=== PATIENT | male | born 1990 | race Two or more races ===

== ENCOUNTER 2019-08-02 02:47 | Emergency (ER) | payer MEDICAID ==
[~2019-08-02] VITALS: Ht 180.3 cm; Wt 99.8 kg
[2019-08-02] MEDS ORDERED: CLINDAMYCIN HCL 150 MG CAP PO ONE (03:15)
[2019-08-02] MEDS ORDERED: cefTRIAXone SOD 1,000 MG VL IM ONE (03:15)
[2019-08-02 03:23] VITALS: BP 147/86
[2019-08-02] MEDS ORDERED: LIDOCAINE 1% HCL (LOCAL ANESTH.) INJ 20ML MDV IJ ONE (03:30)
== END 2019-08-02 03:50 | disposition home or self-care (01) ==
LOC: ER 02:52
DX: K04.7 Periapical abscess without sinus (principal); F17.210 Nicotine dependence, cigarettes, uncomplicated
CPT/HCPCS: 36415; 85025; 96372; 99283; J0696; J2001

== ENCOUNTER 2019-09-14 15:18 | Emergency (ER) | payer MEDICAID ==
[~2019-09-14] VITALS: Ht 180.3 cm; Wt 104.3 kg
[2019-09-14 15:39] VITALS: BP 140/80
== END 2019-09-14 16:46 | disposition home or self-care (01) ==
LOC: ER 15:31
DX: S20.212A Contusion of left front wall of thorax, initial encounter (principal); S80.02XA Contusion of left knee, initial encounter; F17.210 Nicotine dependence, cigarettes, uncomplicated; R51 Headache; V49.9XXA Car occupant (driver) (passenger) injured in unspecified traffic accident, initial encounter; Y93.89 Activity, other specified; Y92.89 Other specified places as the place of occurrence of the external cause; Y99.8 Other external cause status
CPT/HCPCS: 71101; 73560

== ENCOUNTER 2020-04-10 14:17 | Emergency (ER) | payer SELFPAY | END 2020-04-10 15:18 | disposition left against medical advice (07) | LOC: ER 14:17 | DX: J18.9 Pneumonia, unspecified organism (principal); Z53.21 Procedure and treatment not carried out due to patient leaving prior to being seen by health care provider ==

== ENCOUNTER 2020-04-11 12:40 | Inpatient (IN) | payer MEDICAID ==
[~2020-04-11] VITALS: Ht 180.3 cm; Wt 97.4 kg
[2020-04-11] MEDS ORDERED: SODIUM CHLORIDE 0.9% 1,000 ML IV ONE (13:02)
[2020-04-11] MEDS ORDERED: ONDANSETRON HCL 4 MG/2 ML VIAL IV ONE (13:15)
[2020-04-11 14:04] LABS: Basophils # (auto) 0.1 10 ^3/uL (0-0.2); Basophils % (auto) 1.4 % (0.0-2.0); Eosinophils # (auto) 0 10 ^3/uL (0-0.8); Eosinophils % (auto) 0.2 % (0.0-7.0); Hematocrit 39.6 % (41.0-53.0); Hemoglobin 13.1 g/dL (13.5-17.5); Lymphocytes # (auto) 0.5 10 ^3/uL (0.4-5.4); Lymphocytes % (auto) 4.7 % (10.0-50.0); Mean Corpuscular Hgb Conc. 33.1 g/dL (32.0-36.0); Mean Corpuscular Volume 87.5 fL (80.0-100.0); Monocytes # (auto) 1.1 10 ^3/uL (0-1.3); Monocytes % (auto) 10.9 % (0.0-12.0); Neutrophils # (auto) 8.4 10 ^3/uL (1.6-8.6); Neutrophils % (auto) 82.8 % (37.0-80.0); Platelet Count (auto) 317 10^3/uL (140-450); Red Blood Cells 4.53 10^6/uL (4.5-5.90); Red Cell Distribution Width 15.6 % (11.8-14.3); White Blood Cell 10.1 10^3/uL (4.4-10.8)
[2020-04-11 14:26] LABS: Albumin 3.3 g/dL (3.4-5.0); BUN/Creatinine Ratio 21.6; Magnesium 1.5 mg/dL (1.6-2.6)
[2020-04-11 14:28] LABS: Bilirubin, Total 0.9 mg/dL (0.2-1.0); Total Protein 7.9 g/dL (6.4-8.2)
[2020-04-11 14:32] LABS: Potassium 2.8 mmol/L (3.5-5.1)
[2020-04-11] MEDS ORDERED: POTASSIUM CHL 20MEQ/100ML 100 ML IV ONE (15:30)
[2020-04-11] MEDS: PANTOPRAZOLE 40 MG/10 ML VIAL INJ IV SCH (21:51)
[2020-04-11] MEDS: cefTRIAXone 1GM/50ML D5W 50 ML IV SCH (21:52)
[2020-04-11 22:30] VITALS: BP 100/52
--- NOTE | 2020-04-11 22:30 | NUR ---
Admitted this 29 year old male client with the chief complaint of abdominal pain for 2 days and nausea and vomiting for 2 weeks now. Pt. arrived from ER. to [place] Floor by laure @ 2230 Pm. Pt. alert, awake, oriented 4, of culture speaks Ukrainian well. Pt. in Room Air with 02 sat. of 99 %. Breathing regular, even and symmetrical. Pt. denies chest pain. Pt. verbalizing that he has abdominal pain hurting and throbbing as described by the pt. Pt. placed to the bed comfortably in Room 271 A. Pt. is Med.-Surgical, none monitored. Pt. ER. gown changed to floor gown. Pt. physical assessment started from head to toe. Pt. provided room and floor/unit orientation about hospital routines and hospital procedure. Pt. given health teachings about the use of call-light, the use of bed control to modify the head of bed up, use of TV and telephone @ the bedside. Pt. pain is @ the abdomen about 2/10 scale @ this time. IVF access @ the LFA G # 22 is patent and intact. Provided pt. a safe and quiet environment.
--- NOTE | 2020-04-11 23:30 | NUR ---
Continue to gather data by interviewing pt. present and past medical history. Pt. verbalized that his past hospitalization was due to PNA and he is a former smoker and that he stopped smoking 4-5 months ago.
--- NOTE | 2020-04-12 | NUR ---
Pt. resting and sleeping. Pt. provided a safe and quiet environment. Keep pt. warm and comfortable in bed.
[2020-04-12] MEDS: ONDANSETRON HCL 4 MG/2 ML VIAL IV PRN (03:02)
[2020-04-12] MEDS: MORPHINE SULF INJ 2 MG/ML SYRINGE 1ML IV PRN ×2 (03:02→10:06)
[2020-04-12] MEDS: SODIUM CHLORIDE 0.9% 1,000 ML IV SCH ×2 (03:04→09:01)
--- NOTE | 2020-04-12 03:04 | NUR ---
IVF of NS replaced and followed up a new bag @ 85 ml./hr. continuous to hydrate the pt. Pt. kept on NPO as per Doctors order due to presence of abdominal pain. Pt. made aware of present care.
[2020-04-12] MEDS ORDERED: MAGNESIUM SULFATE 1GM/100ML 100 ML IV ONE ×2 (03:24→03:49)
[2020-04-12] MEDS: MAGNESIUM SULFATE 1GM/100ML 100 ML IV SCH ×2 (03:49→05:06)
--- NOTE | 2020-04-12 03:49 | NUR ---
Magnesium Sulfate 1 GM given IVPB @ this time after the ER. RN sent the IV med. to the Floor.
[2020-04-12 05:00] VITALS: BP 101/49
--- NOTE | 2020-04-12 05:06 | NUR ---
Second bag of Magnesium Sulfate 1 GM given IVPB @ 0506 Am. The 2 bags of Magnesium Sulfate IV completed.
[2020-04-12 05:48] LABS: Basophils # (auto) 0 10 ^3/uL (0-0.2); Basophils % (auto) 0.2 % (0.0-2.0); Eosinophils # (auto) 0 10 ^3/uL (0-0.8); Eosinophils % (auto) 0.2 % (0.0-7.0); Hematocrit 34.9 % (41.0-53.0); Hemoglobin 11.7 g/dL (13.5-17.5); Lymphocytes # (auto) 0.1 10 ^3/uL (0.4-5.4); Lymphocytes % (auto) 0.7 % (10.0-50.0); Mean Corpuscular Hemoglobin 29.5 pg (28.0-32.0); Mean Corpuscular Hgb Conc. 33.6 g/dL (32.0-36.0); Mean Corpuscular Volume 87.7 fL (80.0-100.0); Monocytes # (auto) 0.3 10 ^3/uL (0-1.3); Monocytes % (auto) 2.7 % (0.0-12.0); Neutrophils # (auto) 10.4 10 ^3/uL (1.6-8.6); Neutrophils % (auto) 96.2 % (37.0-80.0); Nucleated Red Blood Cells % 0.1 %; Platelet Count (auto) 225 10^3/uL (140-450); Red Blood Cells 3.98 10^6/uL (4.5-5.90); Red Cell Distribution Width 15.8 % (11.8-14.3); White Blood Cell 10.8 10^3/uL (4.4-10.8)
[2020-04-12 06:20] LABS: Albumin 2.8 g/dL (3.4-5.0); BUN/Creatinine Ratio 18.9; Bilirubin, Total 0.7 mg/dL (0.2-1.0); Calcium 7.7 mg/dL (8.5-10.1); Total Protein 6.8 g/dL (6.4-8.2)
[2020-04-12 06:29] LABS: Potassium 2.7 mmol/L (3.5-5.1)
--- NOTE | 2020-04-12 07:05 | NUR ---
HOSPITAL LIST PAGED FOR CRITICAL VALUE OF POTASSIUM 2.7. AWAITING RETURN CALL FOR ORDERS
[2020-04-12 08:00] VITALS: BP 95/56
[2020-04-12] MEDS: cefTRIAXone 1GM/50ML D5W 50 ML IV SCH (09:00)
[2020-04-12] MEDS: POTASSIUM CHL 20MEQ/100ML 100 ML IV SCH ×2 (09:01→13:04)
[2020-04-12] MEDS ORDERED: D5W/SOD CHL 0.45%/KCL 40MEQ 1,000 ML IV ONE (09:15)
[2020-04-12] MEDS: PANTOPRAZOLE 40 MG/10 ML VIAL INJ IV SCH (10:05)
[2020-04-12 10:14] LABS: Amylase 56 U/L (25-115); INR 1.17 (0.9-1.15); Lipase 114 U/L (73-393); Partial Thromboplastin Time 31.1 sec (23.64-32.05)
[2020-04-12 12:00] VITALS: BP 101/54
[2020-04-12] MEDS: SOD CHL 0.45% 1,000 ML IV SCH ×2 (12:39→17:26)
--- NOTE | 2020-04-12 16:02 | NUR ---
RECEIVED A PHONE CALL FROM THE PATIENT'S SISTER. SHE CLAIMED THAT HE IS HIV POSITIVE AND WAS SUPPOSED TO INFORM THE STAFF ON ADMISSION. PATIENT CONFIRMED THAT HE IS HIV POSITIVE.
[2020-04-12] MEDS ORDERED: POTASSIUM CHLORIDE 40 MEQ, LIDOCAINE 1% (LOCAL ANESTH.) 4 ML in SODIUM CHL 0.9% 100 ML IV ONE (16:45)
[2020-04-12 16:56] VITALS: BP 107/63
--- NOTE | 2020-04-12 19:45 | NUR ---
Opening Shift Note Assumed care of patient, sleeping. Awoke pt for shift change assessment and introduction. Pt oriented and alert. No S/S of distress/SOB or pain. Instructed on POC, NPO status and to call for assist PRN, will continue to monitor for changes Q1hr and PRN.
[2020-04-12 22:00] VITALS: BP 139/76
[2020-04-13] MEDS: SOD CHL 0.45% 1,000 ML IV SCH ×2 (04:50→12:45)
[2020-04-13 05:00] VITALS: BP 107/65
--- NOTE | 2020-04-13 06:38 | NUR ---
Pt off unit, taken to pre op.
[2020-04-13] MEDS ORDERED: ceFAZolin 1GM/50ML 50 ML IV ONE (07:01)
[2020-04-13] MEDS ORDERED: POTASSIUM CHL 20MEQ/100ML 100 ML IV ONE ×2 (08:46→09:00)
[2020-04-13] MEDS: cefTRIAXone 1GM/50ML D5W 50 ML IV SCH (09:00)
[2020-04-13] MEDS: PANTOPRAZOLE 40 MG/10 ML VIAL INJ IV SCH (10:00)
[2020-04-13 10:07] LABS: Basophils # (auto) 0 10 ^3/uL (0-0.2); Basophils % (auto) 0.3 % (0.0-2.0); Eosinophils # (auto) 0.2 10 ^3/uL (0-0.8); Eosinophils % (auto) 3.2 % (0.0-7.0); Hematocrit 27.7 % (41.0-53.0); Hemoglobin 9.2 g/dL (13.5-17.5); Lymphocytes # (auto) 0 10 ^3/uL (0.4-5.4); Lymphocytes % (auto) 0.9 % (10.0-50.0); Mean Corpuscular Hemoglobin 29.4 pg (28.0-32.0); Mean Corpuscular Hgb Conc. 33.2 g/dL (32.0-36.0); Mean Corpuscular Volume 88.6 fL (80.0-100.0); Monocytes # (auto) 0.3 10 ^3/uL (0-1.3); Neutrophils # (auto) 4.2 10 ^3/uL (1.6-8.6); Neutrophils % (auto) 88.6 % (37.0-80.0); Platelet Count (auto) 157 10^3/uL (140-450); Red Blood Cells 3.13 10^6/uL (4.5-5.90); Red Cell Distribution Width 15.6 % (11.8-14.3); White Blood Cell 4.7 10^3/uL (4.4-10.8)
[2020-04-13 10:19] LABS: Albumin 2.1 g/dL (3.4-5.0); Calcium 7.4 mg/dL (8.5-10.1); Potassium 3.1 mmol/L (3.5-5.1)
[2020-04-13 10:22] LABS: BUN/Creatinine Ratio 23.4; Bilirubin, Total 0.4 mg/dL (0.2-1.0); Total Protein 5.5 g/dL (6.4-8.2)
[2020-04-13] MEDS ORDERED: SUCCINYLCHOLINE CHLORIDE 20 MG/ML 10ML VIAL IV ONE (10:43)
[2020-04-13] MEDS ORDERED: ROCURONIUM 10MG/ML 10ML VIAL IV ONE (10:46)
[2020-04-13] MEDS ORDERED: fentaNYL CITRATE 100 MCG/2 ML VL ONE (10:46)
[2020-04-13] MEDS ORDERED: GLYCOPYRROLATE 0.2 MG/ML 1ML VIAL IV ONE (10:46)
[2020-04-13] MEDS ORDERED: MIDAZOLAM HCL 1MG/1ML-2 ML VIAL ONE (10:46)
[2020-04-13] MEDS ORDERED: NEOSTIGMINE 1 MG/ML INJ (10mg/10ML VIAL) IV ONE (10:46)
[2020-04-13] MEDS ORDERED: PROPOFOL 10 MG/ML 20 ML IV ONE (10:57)
[2020-04-13] MEDS ORDERED: ONDANSETRON HCL 4 MG/2 ML VIAL IV PRN (12:00)
[2020-04-13] MEDS ORDERED: MORPHINE SULF INJ 2 MG/ML SYRINGE 1ML IV PRN (12:00)
[2020-04-13] MEDS ORDERED: hydrALAZINE HCL 20 MG/ML VL IV PRN (12:00)
[2020-04-13] MEDS ORDERED: ePHEDrine SULFATE 50 MG/ML AMP IV PRN (12:00)
--- NOTE | 2020-04-13 12:41 | NUR ---
PATIENT RETURNED TO UNIT BY MADYSON ZAYAS FROM RECOVERY. PATIENT IS AWAKE AND ALERT. VS - 98.4, 136/99, 86HR, 18RR, 99% ON RA. PATIENT IS COMPLAINING OF 9/10 PAIN IN THE ABDOMEN. INFORMED PATIENT THAT HE RECEIVED MORPHINE 2 MG PRIOR TO BEING BROUGHT BACK UP TO THE FLOOR- PATIENT VERBALIZED UNDERSTANDING I AM UNABLE TO MEDICATE HIM AT THIS TIME. BROUGHT PATIENT ICE CHIPS AND ENCOURAGE DISTRACTION AND REST FOR ALTERNATE PAIN MANAGEMENT. BED LOW. LIGHT IN REACH.
[2020-04-13 12:45] VITALS: BP 136/99
[2020-04-13 13:00] VITALS: BP_SYST 114; BP_SYST 119; BP_DIAS 69; BP_DIAS 71
[2020-04-13] MEDS: MORPHINE SULF INJ 2 MG/ML SYRINGE 1ML IV PRN ×2 (13:17→20:37)
[2020-04-13] MEDS: ONDANSETRON HCL 4 MG/2 ML VIAL IV PRN (13:18)
[2020-04-13 13:30] VITALS: BP 117/76
[2020-04-13] MEDS: SOD CHL 0.45% WITH 20MEQ KCL 1,000 ML IV SCH (16:20)
[2020-04-13 17:00] VITALS: BP 108/62
--- NOTE | 2020-04-13 19:45 | NUR ---
Opening Shift Note Assumed care of patient, awake and alert. No S/S of distress/SOB or pain. Pt given IS and educated on use, pt verbalized understanding, measuring at 500 at this time. Safety measures in place, bed in lowest position, bed rails raised x2, call light within reach. Pt asked if he was allowed to get up and walk later. Pt encouraged to ambulate as tolerated. Pt instructed to call nurse before ambulating for the first time to ensure safety. Pt verbalized understanding. Instructed on POC and to call for assist PRN, will continue to monitor for changes Q1hr and PRN.
[2020-04-13 21:52] VITALS: BP 111/65
--- NOTE | 2020-04-14 | NUR ---
Pt SP amelia cholmarimar, states that he was able to have a bowel movement tonight.
--- NOTE | 2020-04-14 04:16 | NUR ---
Patient is S/P laparoscopic cholecystectomy on 04/13/20. Patient awoke with a temperature of 102.1; cooling measures have been initiated. Patient does not have acetaminophen ordered, paging hospitalist. Will continue to monitor.
[2020-04-14] MEDS ORDERED: ACETAMINOPHEN 325 MG TAB PO PRN (04:45)
[2020-04-14] MEDS: MORPHINE SULF INJ 2 MG/ML SYRINGE 1ML IV PRN ×3 (04:55→20:13)
[2020-04-14 05:00] VITALS: BP 114/60
[2020-04-14 05:52] LABS: Basophils # (auto) 0 10 ^3/uL (0-0.2); Basophils % (auto) 0.1 % (0.0-2.0); Eosinophils # (auto) 0.1 10 ^3/uL (0-0.8); Eosinophils % (auto) 2.8 % (0.0-7.0); Hematocrit 28.2 % (41.0-53.0); Hemoglobin 9.4 g/dL (13.5-17.5); Lymphocytes # (auto) 0.1 10 ^3/uL (0.4-5.4); Lymphocytes % (auto) 4.2 % (10.0-50.0); Mean Corpuscular Hemoglobin 29.8 pg (28.0-32.0); Mean Corpuscular Hgb Conc. 33.5 g/dL (32.0-36.0); Mean Corpuscular Volume 88.7 fL (80.0-100.0); Monocytes # (auto) 0.2 10 ^3/uL (0-1.3); Monocytes % (auto) 7.5 % (0.0-12.0); Neutrophils # (auto) 2.6 10 ^3/uL (1.6-8.6); Neutrophils % (auto) 85.4 % (37.0-80.0); Nucleated Red Blood Cells % 0.2 %; Platelet Count (auto) 153 10^3/uL (140-450); Red Blood Cells 3.17 10^6/uL (4.5-5.90); Red Cell Distribution Width 15.9 % (11.8-14.3)
[2020-04-14 06:11] LABS: Calcium 7.2 mg/dL (8.5-10.1); Potassium 3.2 mmol/L (3.5-5.1)
[2020-04-14 06:14] LABS: BUN/Creatinine Ratio 22.5; Bilirubin, Total 0.4 mg/dL (0.2-1.0)
[2020-04-14] MEDS: SOD CHL 0.45% WITH 20MEQ KCL 1,000 ML IV SCH ×2 (06:30→16:25)
[2020-04-14 08:00] VITALS: BP 106/67
[2020-04-14] MEDS ORDERED: POTASSIUM CHL 20 Meq TABLET PO ONE (08:15)
[2020-04-14] MEDS: cefTRIAXone 1GM/50ML D5W 50 ML IV SCH (08:56)
[2020-04-14 09:16] VITALS: BP 106/67
--- NOTE | 2020-04-14 12:07 | NUR ---
Nutrition Assessment Notes please see attached link for complete assessment Est Energy needs ABW 88 [id number] kcals (23-25 kcal/kgABW),Est Protein needs: 88-105 gms/day (1.0-1.2 gm/kgABW r/t severe hypoalb). Will continue to monitor and reassess prn. Addendum: 04/14/20 at [address] Amended: Links added.
--- NOTE | 2020-04-14 13:00 | NUR ---
PATIENT CLEARED FOR DISCHARGE BY DR RILEY IF AFEBRILE OVER NIGHT
[2020-04-14] MEDS ORDERED: TRAM50TA2 PO (14:16)
[2020-04-14] MEDS ORDERED: METR500T PO (14:16)
[2020-04-14] MEDS ORDERED: ONDA-144 PO (14:16)
[2020-04-14] MEDS ORDERED: CIPR-173 PO (14:16)
[2020-04-14] MEDS ORDERED: FAMO20TA10 PO (14:16)
[2020-04-14 14:35] VITALS: BP 115/62
--- NOTE | 2020-04-14 19:30 | NUR ---
Opening Shift Note Assumed care of patient, awake and alert. No S/S of distress/SOB or pain. Insructed on POC and to callfor assist PRN, will continue to monitor for changes Q1hr and PRN. Fall and safety precautions in place. Call light within reach.
[2020-04-14] MEDS: ONDANSETRON HCL 4 MG/2 ML VIAL IV PRN (20:13)
[2020-04-14 22:00] VITALS: BP 105/72
[2020-04-15 05:00] VITALS: BP 110/62
[2020-04-15] MEDS: SOD CHL 0.45% WITH 20MEQ KCL 1,000 ML IV SCH (06:17)
[2020-04-15 09:00] VITALS: BP 91/42
[2020-04-15] MEDS: cefTRIAXone 1GM/50ML D5W 50 ML IV SCH (09:07)
[2020-04-15] MEDS: ONDANSETRON HCL 4 MG/2 ML VIAL IV PRN (09:14)
[2020-04-15] MEDS: MORPHINE SULF INJ 2 MG/ML SYRINGE 1ML IV PRN (09:14)
--- NOTE | 2020-04-15 09:15 | NUR ---
Discharge As per Hospitalist Dr. Webster, patient is cleared for discharge home. He remained afebrile.
[2020-04-15] MEDS ORDERED: LOPERAMIDE HCL 2 MG CAP PO ONE ×2 (11:30→11:45)
--- NOTE | 2020-04-15 11:30 | NUR ---
Discharge Medications Patient has medications from [facility] at bedside.
[2020-04-15 12:40] VITALS: BP 127/75
[2020-04-15 12:45] VITALS: BP 127/75
--- NOTE | 2020-04-15 14:30 | NUR ---
Discharge instructions given as ordered. Encourage to follow up with PMD as instructed. All questions and concerns addressed. Patient verbalized understanding. Medication reconciliation form completed and copy given to patient. IV removed with catheter intact and pressure dressing applied. Patient taken to vehicle via wheelchair with all personal belongings, accompanied by staff. No distress noted at time of departure.
== END 2020-04-15 14:30 | disposition home or self-care (01) | DRG 263 ==
LOC: EDUNIT# 12:40 → ER 12:40 → EDBD 12:40 → OVERFLOW 12:41 → WEST WING 22:29
PROVIDERS: ADMIT Nurse Practitioner; ATTEND Internal Medicine
PROC: 0FT44ZZ Resection of Gallbladder, Percutaneous Endoscopic Approach (ICD-10-PCS; principal; 2020-04-13 10:39)
DX: K80.12 Calculus of gallbladder with acute and chronic cholecystitis without obstruction (principal); E86.0 Dehydration; E87.6 Hypokalemia; E83.42 Hypomagnesemia; N17.0 Acute kidney failure with tubular necrosis; F12.90 Cannabis use, unspecified, uncomplicated; F17.210 Nicotine dependence, cigarettes, uncomplicated; J98.11 Atelectasis; K76.0 Fatty (change of) liver, not elsewhere classified; Z21 Asymptomatic human immunodeficiency virus [HIV] infection status; Z87.01 Personal history of pneumonia (recurrent); Z11.59 Encounter for screening for other viral diseases
CPT/HCPCS: 36415; 71046; 74181; 76705; 80048; 80053; 82150; 82247; 83690; 83735; 84132; 85025; 85610; 85730; 86701; 86703; 86850; 86900; 86901; 96361; 96374; C9113; G0378; J0330; J0690; J0696; J2001; J2250; J2405; J2704; J3480

== ENCOUNTER 2020-04-20 11:01 | Inpatient (IN) | payer MEDICAID ==
[~2020-04-20] VITALS: Ht 180.3 cm; Wt 87.5 kg
[~2020-04-20 11:01] MED LIST: CIPR-173 PO; FAMO20TA10 PO; METR500T PO; ONDA-144 PO; TRAM50TA2 PO
[2020-04-20] MEDS ORDERED: SODIUM CHLORIDE 0.9% 500 ML IVB ONE (11:16)
[2020-04-20] MEDS ORDERED: PROCHLORPERAZINE EDISYLATE 5 MG/ML 2ML VIAL ONE (11:22)
[2020-04-20] MEDS ORDERED: PROCHLORPERAZINE EDISYLATE 5 MG/ML 2ML VIAL IV ONE (11:30)
[2020-04-20] MEDS ORDERED: MORPHINE SULFATE 4 MG/ML SYR/VIAL IV ONE (11:30)
[2020-04-20 11:50] LABS: Basophils # (auto) 0 10 ^3/uL (0-0.2); Basophils % (auto) 0.4 % (0.0-2.0); Eosinophils # (auto) 0 10 ^3/uL (0-0.8); Eosinophils % (auto) 0.7 % (0.0-7.0); Hematocrit 38.1 % (41.0-53.0); Hemoglobin 12.3 g/dL (13.5-17.5); Lymphocytes # (auto) 0.6 10 ^3/uL (0.4-5.4); Lymphocytes % (auto) 12.7 % (10.0-50.0); Mean Corpuscular Hemoglobin 28.5 pg (28.0-32.0); Mean Corpuscular Hgb Conc. 32.2 g/dL (32.0-36.0); Mean Corpuscular Volume 88.4 fL (80.0-100.0); Monocytes # (auto) 0.8 10 ^3/uL (0-1.3); Neutrophils % (auto) 68.2 % (37.0-80.0); Nucleated Red Blood Cells % 0.1 %; Platelet Count (auto) 424 10^3/uL (140-450); Red Blood Cells 4.31 10^6/uL (4.5-5.90); Red Cell Distribution Width 16.8 % (11.8-14.3); White Blood Cell 4.4 10^3/uL (4.4-10.8)
[2020-04-20 12:12] LABS: Albumin 2.6 g/dL (3.4-5.0); Calcium 7.9 mg/dL (8.5-10.1); Potassium 3.3 mmol/L (3.5-5.1)
[2020-04-20 12:17] LABS: BUN/Creatinine Ratio 23.4; Bilirubin, Total 0.5 mg/dL (0.2-1.0); Total Protein 6.9 g/dL (6.4-8.2)
[2020-04-20] MEDS ORDERED: POTASSIUM CHL 20MEQ/100ML 100 ML IV ONE (13:15)
[2020-04-20] MEDS ORDERED: POTASSIUM CHLORIDE 20 MEQ, LIDOCAINE 1% (LOCAL ANESTH.) 2 ML in SODIUM CHL 0.9% 100 ML IV ONE (14:45)
[2020-04-20] MEDS ORDERED: SODIUM CHLORIDE 0.9% 1,000 ML IV SCH (14:58)
[2020-04-20] MEDS ORDERED: VANCOMYCIN PER PHARMACY 0 MG IV SCH (15:00)
[2020-04-20] MEDS: PANTOPRAZOLE 40mg/50ML NS AE 50 ML IV SCH ×2 (15:00→20:58)
[2020-04-20] MEDS ORDERED: PIPERACILLIN-TAZOB 3.375GM 100 ML IV SCH (15:13)
[2020-04-20] MEDS ORDERED: NITROGLYCERIN 0.4 MG SL TAB SL PRN (15:30)
[2020-04-20] MEDS: AZITHROMYCIN 500MG/ 250ML 250 ML IV SCH (15:35)
[2020-04-20] MEDS ORDERED: VANCOMYCIN 1GM/250ML 250 ML IV ONE (16:00)
[2020-04-20 17:35] VITALS: BP 117/79
[2020-04-20] MEDS: MORPHINE SULF INJ 2 MG/ML SYRINGE 1ML IV PRN (17:52)
[2020-04-20] MEDS ORDERED: PIPERACILLIN-TAZOB 2.25GM 50 ML IV SCH (18:00)
[2020-04-20 20:00] VITALS: BP 105/71
[2020-04-20] MEDS ORDERED: ACETAMINOPHEN 325 MG TAB PO PRN (20:45)
[2020-04-20] MEDS: PIPERACILLIN-TAZOB 3.375GM 100 ML IV SCH (20:58)
[2020-04-20] MEDS ORDERED: ALBUTEROL SULF HFA 90MCG INH 200DOSE IN SCH (22:00)
[2020-04-20 22:06] VITALS: BP 105/71
[2020-04-21] MEDS: MORPHINE SULF INJ 2 MG/ML SYRINGE 1ML IV PRN ×3 (00:07→23:41)
[2020-04-21] MEDS: ONDANSETRON HCL 4 MG/2 ML VIAL IV PRN ×3 (00:08→14:51)
[2020-04-21] MEDS: VANCOMYCIN 1GM/250ML 250 ML IV SCH ×2 (00:12→08:25)
[2020-04-21] MEDS: PANTOPRAZOLE 40mg/50ML NS AE 50 ML IV SCH ×3 (01:31→11:00)
[2020-04-21] MEDS: PIPERACILLIN-TAZOB 3.375GM 100 ML IV SCH ×4 (02:52→22:11)
[2020-04-21 05:08] VITALS: BP 106/48
[2020-04-21 06:20] LABS: Basophils # (auto) 0 10 ^3/uL (0-0.2); Basophils % (auto) 0.2 % (0.0-2.0); Eosinophils # (auto) 0.1 10 ^3/uL (0-0.8); Eosinophils % (auto) 1.5 % (0.0-7.0); Hematocrit 35.4 % (41.0-53.0); Hemoglobin 11.5 g/dL (13.5-17.5); Lymphocytes # (auto) 0.2 10 ^3/uL (0.4-5.4); Mean Corpuscular Hemoglobin 28.9 pg (28.0-32.0); Mean Corpuscular Hgb Conc. 32.6 g/dL (32.0-36.0); Mean Corpuscular Volume 88.5 fL (80.0-100.0); Monocytes # (auto) 1.1 10 ^3/uL (0-1.3); Monocytes % (auto) 14.2 % (0.0-12.0); Neutrophils # (auto) 6.4 10 ^3/uL (1.6-8.6); Neutrophils % (auto) 82.1 % (37.0-80.0); Platelet Count (auto) 330 10^3/uL (140-450); Red Cell Distribution Width 16.5 % (11.8-14.3); White Blood Cell 7.8 10^3/uL (4.4-10.8)
[2020-04-21 06:31] LABS: Lactic Acid w/Reflex 2.1 mmol/L (0.4-2.0)
[2020-04-21 06:32] LABS: Albumin 2.4 g/dL (3.4-5.0)
[2020-04-21 06:58] LABS: BUN/Creatinine Ratio 14.4; Bilirubin, Total 0.6 mg/dL (0.2-1.0); CRP High Sensitivity 2.31 mg/dL (< 0.3); Calcium 7.3 mg/dL (8.5-10.1); Magnesium 1.1 mg/dL (1.6-2.6); Total Protein 6.3 g/dL (6.4-8.2)
[2020-04-21 09:00] VITALS: BP_SYST 82; BP_SYST 94; BP_DIAS 43; BP_DIAS 58
[2020-04-21] MEDS: ENOXAPARIN SOD 40 MG/0.4 ML SYRINGE SC SCH (09:37)
[2020-04-21] MEDS: AZITHROMYCIN 500MG/ 250ML 250 ML IV SCH (09:37)
[2020-04-21] MEDS ORDERED: ZINC SULFATE 220mg CAP or TAB PO SCH (10:00)
[2020-04-21] MEDS ORDERED: CHOLECALCIFEROL (VITD3) 2,000 UNIT CAP PO SCH (10:00)
[2020-04-21] MEDS ORDERED: ASCORBIC ACID 1,000 MG TAB PO SCH (10:00)
[2020-04-21] MEDS ORDERED: POTASSIUM CHLORIDE 40 MEQ, LIDOCAINE 1% (LOCAL ANESTH.) 4 ML in SODIUM CHL 0.9% 100 ML IV ONE (11:45)
[2020-04-21] MEDS: MAGNESIUM SULFATE 1GM/100ML 100 ML IV SCH ×2 (11:53→12:44)
[2020-04-21 13:00] VITALS: BP 97/53
[2020-04-21] MEDS: SODIUM CHLORIDE 0.9% 1,000 ML IV SCH ×2 (14:18→23:38)
[2020-04-21 17:00] VITALS: BP 101/57
[2020-04-21 18:49] LABS: Alcohol, Urine < 3.0 mg/dL (0-10); Amphetamine Screen, Urine NEGATIVE (NEGATIVE); Barbiturate Scree,Urine NEGATIVE (NEGATIVE); Benzodiazephine Screen, Urine NEGATIVE (NEGATIVE); Cannabinoid Screen, Urine NEGATIVE (NEGATIVE); Cocaine Screen, Urine NEGATIVE (NEGATIVE); Opiate Scree,Urine POSITIVE (NEGATIVE); Phencyclidine Screen, Urine NEGATIVE (NEGATIVE); Urine Bacteria FEW /hpf (None Seen); Urine Blood Negative /uL (Negative); Urine Specific Gravity 1.014 (1.001-1.035); Urine WBC 9 /hpf (0 - 3)
[2020-04-21 22:00] VITALS: BP 106/98
[2020-04-21] MEDS: PANTOPRAZOLE 40 MG/10 ML VIAL INJ IV SCH (22:11)
[2020-04-22] MEDS: PIPERACILLIN-TAZOB 3.375GM 100 ML IV SCH ×2 (04:09→09:09)
[2020-04-22 05:00] VITALS: BP 111/56
[2020-04-22 07:20] LABS: Basophils # (auto) 0 10 ^3/uL (0-0.2); Eosinophils # (auto) 0.1 10 ^3/uL (0-0.8); Eosinophils % (auto) 2.9 % (0.0-7.0); Hemoglobin 11.3 g/dL (13.5-17.5); Lymphocytes # (auto) 0.2 10 ^3/uL (0.4-5.4); Lymphocytes % (auto) 4.3 % (10.0-50.0); Mean Corpuscular Hemoglobin 29.6 pg (28.0-32.0); Mean Corpuscular Hgb Conc. 33.3 g/dL (32.0-36.0); Mean Corpuscular Volume 88.9 fL (80.0-100.0); Monocytes # (auto) 0.6 10 ^3/uL (0-1.3); Monocytes % (auto) 11.7 % (0.0-12.0); Neutrophils # (auto) 3.9 10 ^3/uL (1.6-8.6); Neutrophils % (auto) 81.1 % (37.0-80.0); Platelet Count (auto) 346 10^3/uL (140-450); Red Blood Cells 3.82 10^6/uL (4.5-5.90); Red Cell Distribution Width 16.7 % (11.8-14.3); White Blood Cell 4.8 10^3/uL (4.4-10.8)
[2020-04-22 07:39] LABS: Calcium 7.5 mg/dL (8.5-10.1); Magnesium 2.2 mg/dL (1.6-2.6); Potassium 3.5 mmol/L (3.5-5.1)
[2020-04-22 07:40] LABS: BUN/Creatinine Ratio 9.6
[2020-04-22 08:30] VITALS: BP 110/61
[2020-04-22 09:00] VITALS: BP 110/61
[2020-04-22] MEDS: ENOXAPARIN SOD 40 MG/0.4 ML SYRINGE SC SCH (09:10)
[2020-04-22] MEDS: SODIUM CHLORIDE 0.9% 1,000 ML IV SCH (09:10)
[2020-04-22] MEDS: PANTOPRAZOLE 40 MG/10 ML VIAL INJ IV SCH ×2 (09:10→23:47)
[2020-04-22] MEDS: ONDANSETRON HCL 4 MG/2 ML VIAL IV PRN ×3 (09:43→23:42)
[2020-04-22] MEDS: MORPHINE SULF INJ 2 MG/ML SYRINGE 1ML IV PRN ×3 (09:43→23:42)
[2020-04-22] MEDS ORDERED: GASTROGRAFIN 120 ML SOL ONE (10:33)
[2020-04-22] MEDS: D5W/SOD CHL 0.45% 1,000 ML IV SCH ×2 (11:20→18:15)
[2020-04-22] MEDS: PIPERACILLIN-TAZOB 2.25GM 50 ML IV SCH ×2 (15:25→23:42)
[2020-04-22 22:00] VITALS: BP 88/58
[2020-04-23] MEDS: D5W/SOD CHL 0.45% 1,000 ML IV SCH (02:59)
[2020-04-23] MEDS: PIPERACILLIN-TAZOB 2.25GM 50 ML IV SCH ×4 (03:21→21:07)
[2020-04-23 05:00] VITALS: BP 98/54
[2020-04-23] MEDS: MORPHINE SULF INJ 2 MG/ML SYRINGE 1ML IV PRN ×3 (06:43→20:50)
[2020-04-23] MEDS: ONDANSETRON HCL 4 MG/2 ML VIAL IV PRN ×3 (06:43→20:48)
[2020-04-23 07:41] LABS: Calcium 7.3 mg/dL (8.5-10.1); Potassium 3.1 mmol/L (3.5-5.1)
[2020-04-23 07:44] LABS: BUN/Creatinine Ratio 7.5
[2020-04-23 08:00] VITALS: BP 102/58
[2020-04-23 09:00] VITALS: BP 102/58
[2020-04-23] MEDS: PANTOPRAZOLE 40 MG/10 ML VIAL INJ IV SCH ×2 (09:39→21:05)
[2020-04-23] MEDS: ENOXAPARIN SOD 40 MG/0.4 ML SYRINGE SC SCH (09:40)
[2020-04-23] MEDS: POTASSIUM CHL 20MEQ/100ML 100 ML IV SCH ×7 (09:45→23:16)
[2020-04-23] MEDS ORDERED: metroNIDAZOLE 500MG/100ML 100 ML IV ONE (09:45)
[2020-04-23] MEDS ORDERED: SODIUM BICARBONATE 50ML VIAL 50 ML in D5W/SOD CHL 0.45% 1,000 ML IV SCH (09:45)
[2020-04-23] MEDS ORDERED: VANCOMYCIN HCL 125MG/5ML ORAL SOL PO ONE (09:45)
[2020-04-23] MEDS: ALBUMIN 25% 100 ML IV SCH ×2 (10:00→18:00)
[2020-04-23 13:00] VITALS: BP 113/64
[2020-04-23] MEDS: VANCOMYCIN HCL 125MG/5ML ORAL SOL PO SCH ×3 (14:05→22:00)
[2020-04-23] MEDS: SODIUM BICARBONATE 50ML VIAL 75 ML in D5W/SOD CHL 0.45% 1,000 ML IV SCH ×3 (14:05→23:16)
[2020-04-23] MEDS: metroNIDAZOLE 500MG/100ML 100 ML IV SCH ×2 (16:49→22:50)
[2020-04-23 17:00] VITALS: BP 118/86
[2020-04-23 18:53] LABS: Creatinine, Urine 142 mg/dL (30.0-125.0); Sodium Urine 26 mmol/L (40-220)
[2020-04-23 21:46] LABS: INR 1.35 (0.9-1.15); Partial Thromboplastin Time 36.8 sec (23.0-31.2)
[2020-04-23 22:00] VITALS: BP 90/51
[2020-04-24] MEDS: POTASSIUM CHL 20MEQ/100ML 100 ML IV SCH ×5 (00:57→23:18)
[2020-04-24] MEDS: ALBUMIN 25% 100 ML IV SCH (01:59)
[2020-04-24] MEDS: ONDANSETRON HCL 4 MG/2 ML VIAL IV PRN ×4 (03:40→22:34)
[2020-04-24] MEDS: MORPHINE SULF INJ 2 MG/ML SYRINGE 1ML IV PRN ×4 (03:43→22:35)
[2020-04-24] MEDS: PIPERACILLIN-TAZOB 2.25GM 50 ML IV SCH ×4 (03:45→22:37)
[2020-04-24 05:00] VITALS: BP 132/63
[2020-04-24] MEDS: metroNIDAZOLE 500MG/100ML 100 ML IV SCH ×3 (05:52→21:30)
[2020-04-24] MEDS: SODIUM BICARBONATE 50ML VIAL 75 ML in D5W/SOD CHL 0.45% 1,000 ML IV SCH (05:53)
[2020-04-24] MEDS: VANCOMYCIN HCL 125MG/5ML ORAL SOL PO SCH ×2 (05:53→11:22)
[2020-04-24 07:01] LABS: Albumin 2.2 g/dL (3.4-5.0); BUN/Creatinine Ratio 6.5; Bilirubin, Total 0.4 mg/dL (0.2-1.0); Calcium 6.9 mg/dL (8.5-10.1); Phosphorus 2.8 mg/dL (2.5-4.90); Total Protein 5.5 g/dL (6.4-8.2)
[2020-04-24 07:23] LABS: Potassium 2.8 mmol/L (3.5-5.1)
[2020-04-24 09:22] VITALS: BP 88/49
[2020-04-24] MEDS ORDERED: SODIUM BICARBONATE 50ML VIAL 100 ML in D5W/SOD CHL 0.45% 1,000 ML IV SCH (09:30)
[2020-04-24] MEDS: PANTOPRAZOLE 40 MG/10 ML VIAL INJ IV SCH ×2 (09:46→21:30)
[2020-04-24] MEDS: ENOXAPARIN SOD 40 MG/0.4 ML SYRINGE SC SCH (09:46)
[2020-04-24] MEDS ORDERED: POTASSIUM CHL 20MEQ/100ML 100 ML IV SCH (10:00)
[2020-04-24] MEDS ORDERED: LORazepam 2MG/ML-1ML VIAL IV ONE (10:00)
[2020-04-24 11:15] LABS: Hepatitis B Surface Antibody Positive
[2020-04-24] MEDS: SODIUM BICARBONATE 50ML VIAL 100 ML in D5W/SOD CHL 0.45% 1,000 ML IV SCH ×3 (11:21→23:09)
[2020-04-24] MEDS ORDERED: POTASSIUM EFFERVESENT TAB 25 MEQ PO ONE (11:30)
[2020-04-24] MEDS ORDERED: LOPERAMIDE HCL 2 MG CAP PO PRN (11:45)
[2020-04-24] MEDS ORDERED: ONDANSETRON HCL 4 MG/2 ML VIAL IV ONE (11:45)
[2020-04-24 11:52] LABS: Hepatitis A Total Antibody Positive
[2020-04-24 13:00] VITALS: BP 88/44
[2020-04-24 13:42] LABS: Hepatitis B Surface Antigen Negative (Negative); Hepatitis C Antibody Negative (Negative)
[2020-04-24 13:43] LABS: Hepatitis B Core Total AB Negative
[2020-04-24 16:56] VITALS: BP 107/77
[2020-04-24] MEDS ORDERED: POTASSIUM CHL 20MEQ/100ML 100 ML IV ONE (17:46)
[2020-04-24] MEDS ORDERED: METOCLOPRAMIDE HCL 5MG/ml INJ 2ml VIAL IV PRN (21:45)
[2020-04-24 23:15] VITALS: BP 99/60
[2020-04-25] MEDS: SODIUM BICARBONATE 50ML VIAL 100 ML in D5W/SOD CHL 0.45% 1,000 ML IV SCH ×2 (02:15→06:07)
[2020-04-25] MEDS: POTASSIUM CHL 20MEQ/100ML 100 ML IV SCH (02:54)
[2020-04-25] MEDS: PIPERACILLIN-TAZOB 2.25GM 50 ML IV SCH ×2 (03:01→09:00)
[2020-04-25 05:31] VITALS: BP 107/72
[2020-04-25] MEDS: metroNIDAZOLE 500MG/100ML 100 ML IV SCH ×3 (06:06→23:10)
[2020-04-25] MEDS: MORPHINE SULF INJ 2 MG/ML SYRINGE 1ML IV PRN (06:07)
[2020-04-25 06:24] LABS: Basophils # (auto) 0 10 ^3/uL (0-0.2); Basophils % (auto) 0.2 % (0.0-2.0); Eosinophils # (auto) 0 10 ^3/uL (0-0.8); Eosinophils % (auto) 0.4 % (0.0-7.0); Hematocrit 30.6 % (41.0-53.0); Hemoglobin 10.1 g/dL (13.5-17.5); Lymphocytes # (auto) 0.3 10 ^3/uL (0.4-5.4); Lymphocytes % (auto) 5.6 % (10.0-50.0); Mean Corpuscular Hemoglobin 29.1 pg (28.0-32.0); Mean Corpuscular Volume 88.4 fL (80.0-100.0); Monocytes # (auto) 0.7 10 ^3/uL (0-1.3); Monocytes % (auto) 14.3 % (0.0-12.0); Neutrophils # (auto) 3.7 10 ^3/uL (1.6-8.6); Neutrophils % (auto) 79.5 % (37.0-80.0); Nucleated Red Blood Cells % 0.1 %; Platelet Count (auto) 308 10^3/uL (140-450); Red Blood Cells 3.46 10^6/uL (4.5-5.90); Red Cell Distribution Width 17.1 % (11.8-14.3); White Blood Cell 4.6 10^3/uL (4.4-10.8)
[2020-04-25 06:36] LABS: Albumin 1.9 g/dL (3.4-5.0); Calcium 6.8 mg/dL (8.5-10.1)
[2020-04-25 06:40] LABS: BUN/Creatinine Ratio 5.4; Bilirubin, Total 0.5 mg/dL (0.2-1.0)
[2020-04-25 09:00] VITALS: BP 94/51
[2020-04-25] MEDS: ENOXAPARIN SOD 30 MG/0.3 ML SYRINGE SC SCH ×2 (10:00→10:29)
[2020-04-25] MEDS ORDERED: POTASSIUM CHL 20MEQ/100ML 100 ML IV SCH (10:15)
[2020-04-25] MEDS ORDERED: SODIUM BICARBONATE 50ML VIAL 100 ML in D5W/SOD CHL 0.45% 1,000 ML IV SCH (10:15)
[2020-04-25] MEDS: PANTOPRAZOLE 40 MG/10 ML VIAL INJ IV SCH ×2 (10:29→23:10)
[2020-04-25] MEDS ORDERED: POTASSIUM EFFERVESENT TAB 25 MEQ PO ONE ×2 (11:45→17:00)
[2020-04-25] MEDS: SODIUM BICARBONATE 50ML VIAL 50 ML in D5W/SOD CHL 0.45% 1,000 ML IV SCH ×2 (12:24→23:10)
[2020-04-25] MEDS: CHOLESTYRAMINE 4 GM POWDER PO SCH ×2 (12:25→23:11)
[2020-04-25] MEDS: PROCHLORPERAZINE EDISYLATE 5 MG/ML 2ML VIAL IV PRN (12:30)
[2020-04-25 12:54] VITALS: BP 98/51
[2020-04-25 17:00] VITALS: BP 112/64
[2020-04-25 21:46] VITALS: BP 124/81
[2020-04-26] MEDS: PROCHLORPERAZINE EDISYLATE 5 MG/ML 2ML VIAL IV PRN ×3 (01:27→22:12)
[2020-04-26] MEDS: SODIUM BICARBONATE 50ML VIAL 50 ML in D5W/SOD CHL 0.45% 1,000 ML IV SCH (04:00)
[2020-04-26 05:25] VITALS: BP 94/54
[2020-04-26] MEDS: metroNIDAZOLE 500MG/100ML 100 ML IV SCH (05:32)
[2020-04-26] MEDS: CHOLESTYRAMINE 4 GM POWDER PO SCH ×5 (05:33→22:00)
[2020-04-26 06:18] LABS: Albumin 1.7 g/dL (3.4-5.0); Calcium 6.6 mg/dL (8.5-10.1)
[2020-04-26 06:24] LABS: BUN/Creatinine Ratio 5.2; Bilirubin, Total 0.4 mg/dL (0.2-1.0); Total Protein 4.7 g/dL (6.4-8.2)
[2020-04-26 06:44] LABS: Potassium 2.8 mmol/L (3.5-5.1)
[2020-04-26] MEDS ORDERED: POTASSIUM EFFERVESENT TAB 25 MEQ PO ONE (07:30)
[2020-04-26] MEDS ORDERED: POTASSIUM CHL 20 Meq TABLET PO ONE (07:45)
[2020-04-26 09:00] VITALS: BP 111/42
[2020-04-26] MEDS: PANTOPRAZOLE 40 MG/10 ML VIAL INJ IV SCH ×2 (09:10→22:02)
[2020-04-26] MEDS: ENOXAPARIN SOD 30 MG/0.3 ML SYRINGE SC SCH (09:11)
[2020-04-26] MEDS: POTASSIUM CHL 20MEQ/100ML 100 ML IV SCH ×2 (09:35→12:45)
[2020-04-26] MEDS ORDERED: ALBUMIN 5% 250 ML IV ONE (09:45)
[2020-04-26] MEDS: POTASSIUM EFFERVESENT TAB 25 MEQ GT SCH ×3 (10:00→18:00)
[2020-04-26 13:00] VITALS: BP 125/74
[2020-04-26] MEDS ORDERED: POTASSIUM CHL 20MEQ/100ML 100 ML IV ONE (13:00)
[2020-04-26] MEDS: SODIUM BICARBONATE 50ML VIAL 50 ML in D5W 5% 1,000 ML IV SCH (16:28)
[2020-04-26 17:00] VITALS: BP 100/60
[2020-04-26 18:07] LABS: Magnesium 1.4 mg/dL (1.6-2.6); Potassium 3.8 mmol/L (3.5-5.1)
[2020-04-26 22:00] VITALS: BP 117/67
[2020-04-27] MEDS: SODIUM BICARBONATE 50ML VIAL 50 ML in D5W 5% 1,000 ML IV SCH ×3 (01:38→14:30)
[2020-04-27 05:00] VITALS: BP 124/85
[2020-04-27] MEDS: CHOLESTYRAMINE 4 GM POWDER PO SCH ×2 (05:33→12:00)
[2020-04-27 07:59] LABS: Hematocrit 29.4 % (41.0-53.0); Hemoglobin 9.6 g/dL (13.5-17.5)
[2020-04-27] MEDS: PROCHLORPERAZINE EDISYLATE 5 MG/ML 2ML VIAL IV PRN (08:01)
[2020-04-27 08:19] LABS: Albumin 1.8 g/dL (3.4-5.0); Calcium 6.6 mg/dL (8.5-10.1); Magnesium 1.4 mg/dL (1.6-2.6); Potassium 3.3 mmol/L (3.5-5.1)
[2020-04-27 08:23] LABS: BUN/Creatinine Ratio 5.3; Bilirubin, Total 0.4 mg/dL (0.2-1.0); Total Protein 4.6 g/dL (6.4-8.2)
[2020-04-27 09:00] VITALS: BP 89/54
[2020-04-27] MEDS: ENOXAPARIN SOD 30 MG/0.3 ML SYRINGE SC SCH (10:00)
[2020-04-27] MEDS: PANTOPRAZOLE 40 MG/10 ML VIAL INJ IV SCH (10:00)
[2020-04-27] MEDS ORDERED: POTASSIUM CHL 20MEQ/100ML 100 ML IV ONE (11:45)
[2020-04-27] MEDS: MAGNESIUM SULFATE 1GM/100ML 100 ML IV SCH ×2 (11:46→13:35)
[2020-04-27] MEDS ORDERED: MAGNESIUM SULFATE 1GM/100ML 100 ML IV SCH (12:00)
[2020-04-27 12:59] VITALS: BP 90/58
[2020-04-27] MEDS ORDERED: MORPHINE SULF INJ 2 MG/ML SYRINGE 1ML IV PRN (14:15)
== END 2020-04-27 17:22 | disposition short-term general hospital (02) | DRG 893 ==
LOC: ER 11:01 → EDBD 11:01 → OVERFLOW 11:02 → EAST 17:23 → CENTRAL 04-21 18:09 → TELE-CENTR 04-27 13:17
PROVIDERS: ATTEND Internal Medicine
DX: B20 Human immunodeficiency virus [HIV] disease (principal); K56.7 Ileus, unspecified; E87.6 Hypokalemia; E87.8 Other disorders of electrolyte and fluid balance, not elsewhere classified; D64.9 Anemia, unspecified; E83.42 Hypomagnesemia; E86.0 Dehydration; E87.2 Acidosis; E88.09 Other disorders of plasma-protein metabolism, not elsewhere classified; N29 Other disorders of kidney and ureter in diseases classified elsewhere; N17.0 Acute kidney failure with tubular necrosis; E43 Unspecified severe protein-calorie malnutrition; K52.9 Noninfective gastroenteritis and colitis, unspecified; F17.210 Nicotine dependence, cigarettes, uncomplicated; Z20.828 Contact with and (suspected) exposure to other viral communicable diseases; Z90.49 Acquired absence of other specified parts of digestive tract; Z79.899 Other long term (current) drug therapy; Z68.26 Body mass index [BMI] 26.0-26.9, adult; F12.90 Cannabis use, unspecified, uncomplicated
CPT/HCPCS: 36415; 71045; 74176; 74250; 76775; 78226; 80048; 80053; 80307; 81001; 82550; 82570; 82728; 82784; 83605; 83615; 83690; 83735; 84100; 84132; 84300; 84443; 85014; 85018; 85025; 85379; 85610; 85730; 86141; 86160; 86360; 86644; 86645; 86701; 86703; 86704; 86706; 86708; 86803; 87040; 87045; 87070; 87081; 87086; 87177; 87340; 87427; 87493; 87804; 87880; 93005; C9113; G0378; J2001; J2405; J2543; J3480; J3490; P9047